=== PATIENT | female | born 1985 ===

== ENCOUNTER 2018-04-02 18:50 | Emergency (ER) | payer SELFPAY ==
[2018-04-02 19:02] VITALS: BMI 27.4
[2018-04-02 19:05] VITALS: RESP 18
[2018-04-02] MEDS ORDERED: Oxycodone/Acetaminophen 5/325 mg Tab PO STA (20:32)
[2018-04-02 20:34] VITALS: BP 132/84; PULSE 62; TEMP 98.3; O2SAT 100
[2018-04-02] MEDS ORDERED: Oxycodone/Acetaminophen 5/325 mg Tab ONE (20:38)
--- NOTE | 2018-04-02 20:55 | C.PDOC ---
History Of Present Illness 32 y/o female c/o pain to left clavicular area; pt was playing softball and someone ran into her from behind by accident. pt denies any head injury, no neck pain, did not fall down and injure self elsewhere. denies any numbness or tingling. Time Seen by Provider: 04/02/18 19:29 Chief Complaint (Nursing): Upper Extremity Problem/Injury History Per: Patient History/Exam Limitations: no limitations Onset/Duration Of Symptoms: Hrs (1) Current Symptoms Are (Timing): Still Present Quality: Sharp Severity: Moderate Exacerbating Factor(s): Nothing, Strenuous Use Of Affected Area Past Medical History Reviewed: Historical Data, Nursing Documentation, Vital Signs Vital Signs: Last Vital Signs Temp 98.3 F 04/02/18 20:33 Pulse 62 04/02/18 20:33 Resp 18 04/02/18 20:33 BP 132/84 04/02/18 20:33 Pulse Ox 100 04/02/18 21:22 - Medical History PMH: No Chronic Diseases Family History: States: Unknown Family Hx - Social History Hx Alcohol Use: Yes Hx Substance Use: Yes (MARIJUANA) - Immunization History Hx Tetanus Toxoid Vaccination: No Hx Influenza Vaccination: No Hx Pneumococcal Vaccination: No Review Of Systems Cardiovascular: Negative for: Chest Pain, Palpitations Respiratory: Negative for: Shortness of Breath, Hemoptysis Musculoskeletal: Positive for: Shoulder Pain (left clavicle area) Skin: Negative for: Bruising Neurological: Negative for: Weakness, Numbness Physical Exam - Physical Exam Appears: Non-toxic, Other (obvious discomfort) Skin: Warm, Dry Head: Atraumatic, Normacephalic Neck: Normal ROM, No Midline Cervical Tenderness, No Paracervical Tenderness, No Step Off Deformity, Supple Chest: Symmetrical, Deformity (mid left clavicle elevated appearing and tender ), Tenderness (left clavicle tender midway) Cardiovascular: Rhythm Regular, No Murmur Respiratory: No Decreased Breath Sounds, No Accessory Muscle Use, No Rales, No Rhonchi Extremity: Capillary Refill (less than 2 seconds), Other (left shoulder, elbow, wrist and hand non tender with from) Extremity: Left: Bony Point Tenderness (mid clavicle) Pulses: Left Radial: Normal Neurological/Psych: Oriented x3, Normal Speech, Normal Cognition, Normal Motor, Normal Sensation ED Course And Treatment O2 Sat by Pulse Oximetry: 100 Medical Decision Making Medical Decision Making: pt with left clavicular pain, mid shaft fx noted on xray; discussed with Dr Sommers; will d/c pt in sling with outpatient follow up in his office. Disposition Discussed With .: Jason Sommers Counseled Patient/Family Regarding: Studies Performed, Diagnosis, Need For Followup, Rx Given - Disposition Referrals: Jason Sommers MD [Staff Provider] - Disposition: HOME/ ROUTINE Disposition Time: 20:52 Condition: GOOD Additional Instructions: Please wear sling for comfort. Cold compresses several times a day to painful area. Tylenol for pain; take a Percocet for severe pain. Call Dr Sommers's office tomorrow to make a follow up appointment. Return to ER for any worsening symptoms- worse pain, any numbness or tingling, trouble breathing. Prescriptions: oxyCODONE/Acetaminophen [Percocet 5/325 mg Tab] 1 ea PO Q6 #10 tab Instructions: Clavicle Fracture (DC) Forms: General Discharge Instructions, [facility] ([place]), Work Excuse - Clinical Impression Clinical Impression: Fracture of left clavicle
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
== END 2018-04-02 21:02 | disposition home or self-care (01) ==
LOC: C.ER 18:50
DX: S42.022A Displaced fracture of shaft of left clavicle, initial encounter for closed fracture (principal); W50.0XXA Accidental hit or strike by another person, initial encounter; Y93.64 Activity, baseball